=== PATIENT | female | born 1955 | race Caucasian/White ===

== ENCOUNTER → 2018-07-05 | Outpatient (CLI) | payer OTHER ==
[~2018-07-05] MED LIST: AREDS PO; BENAZEPRIL HCL10 MG PO; DICYCLOMINE HCL20 MG PO; GLIMEPIRIDE2 MG PO; LIPITOR20 MG PO; NEXIUM40 MG PO; SPECTRAVITE SE1 EACH PO; ULTRAM50 MG PO
--- NOTE | 2018-07-05 10:51 | Diagnostic Imaging Report ---
Exam: Left shoulderCT without contrast. History: Shoulder pain. Fracture. Decreased range of motion. Comparison:None Technique: Utilizing a 64-slice multidetector CT, axial imaging was performed through the left shoulder without IV contrast. Multiplanar reformation was performed. All CT scans are performed using radiation dose reduction techniques. Technical factors are evaluated and adjusted to ensure appropriate moderation of exposure. Automated dose management technology is applied to adjust the radiation dose to minimize exposure while achieving a diagnostic-quality image. Findings: There is a comminuted intra-articular impaction type fracture involving the left humeral head with several adjacent small bone fragments. The fracture extends to the inferior glenohumeral joint. The humeral head is well-seated in the glenoid fossa. There is associated soft tissue edema and there is a small shoulder joint effusion. There are mild degenerative changes at the acromioclavicular joint. The remainder the visualized osseous structures are intact. The visualized portion of the lung is grossly unremarkable. Impression: Comminuted intra-articular impaction type fracture involving the left humeral head with several adjacent small bone fragments. The fracture extends to the inferior glenohumeral joint. The humeral head is well-seated in the glenoid fossa. There is associated soft tissue edema and there is a small shoulder joint effusion. Signed by: Dr. Lyle Barajas M.D. on 07/05/2018 10:48 AM
== END ==
LOC: CT 08:50
PROVIDERS: ATTEND Specialist
DX: S42.202A Unspecified fracture of upper end of left humerus, initial encounter for closed fracture (principal)

== ENCOUNTER 2018-07-11 10:59 | Observation (INO) | payer OTHER ==
[2018-07-08 11:29] LABS: ANION GAP 13.4 mmol/L (8-16); BLOOD UREA NITROGEN 12 mg/dL (7-26); BUN/CREATININE RATIO 14 (6-25); CARBON DIOXIDE 27 mmol/L (22-29); CHLORIDE 103 mmol/L (98-107); CREATININE, SERUM 0.86 mg/dL (0.57-1.11); EST GLOMERULAR FILTRATION RATE > 60 ML/MIN (60-); GLUCOSE 162 mg/dL (74-118); POTASSIUM 4.4 mmol/L (3.5-5.1); SODIUM 139 mmol/L (136-145)
--- NOTE | 2018-07-08 13:15 | Diagnostic Imaging Report ---
EXAMINATION: CHEST 2 VIEWS INDICATION: \S\PRE ADMIT \[id number] \S\[id number] COMPARISON: Chest radiograph 08/21/2016 FINDINGS: PA and lateral views TUBES and LINES: None. LUNGS: Lungs are well inflated. Lungs are clear. There is no evidence of pneumonia or pulmonary edema. PLEURA: No pleural effusion or pneumothorax. HEART AND MEDIASTINUM: The cardiomediastinal silhouette is unremarkable. BONES AND SOFT TISSUES: No acute osseous lesion. Soft tissues are unremarkable. UPPER ABDOMEN: No free air under the diaphragm. IMPRESSION: No acute thoracic abnormality. Signed by: Dr. Stephie Ho M.D. on 07/08/2018 1:12 PM
[~2018-07-11] VITALS: Ht 160 cm; Wt 89.8 kg
[2018-07-11] MEDS ORDERED: CLINDAMYCIN PHOS 900MG/ D5W 50 50 ML IV ONE (11:10)
[2018-07-11] MEDS ORDERED: ULTRAM 50MG50 MG PO (11:26)
[2018-07-11] MEDS ORDERED: LEVAQUIN500 MG PO (11:27)
[2018-07-11] MEDS ORDERED: BUPIVACAINE 0.5%/EPI 30 ML SDV INJ ONE (12:01)
[2018-07-11] MEDS ORDERED: BACITRACIN 50,000 UNIT VIAL ONE (12:01)
[2018-07-11] MEDS ORDERED: BUPIVACAINE HCL 0.5% INJ 30 ML VIAL INJ ONE (12:01)
[2018-07-11] MEDS ORDERED: SODIUM CHLORIDE 0.9% 1000ML 1,000 ML IV SCH (14:32)
[2018-07-11] MEDS ORDERED: HYDROMORPHONE 0.2MG/ML-SOD CHL 30ML PCA SYRINGE IV PRN (14:45)
[2018-07-11] MEDS ORDERED: ONDANSETRON HCL INJ 2 MG/ML VIAL IV PRN (14:45)
[2018-07-11] MEDS ORDERED: ACETAMINOPHEN 1000 MG/100 ML IV PRN (14:45)
[2018-07-11] MEDS ORDERED: NALOXONE HCL INJ 0.4 MG/ML AMP IV PRN (14:45)
[2018-07-11] MEDS ORDERED: DIPHENHYDRAMINE HCL INJ 50 MG/ML VIAL IM/IV PRN (14:45)
[2018-07-11] MEDS ORDERED: HYDROMORPHONE 0.2MG/ML-SOD CHL 30ML PCA SYRINGE IV ONE (15:31)
[2018-07-11 18:20] VITALS: BP 135/69
[2018-07-11] MEDS ORDERED: LIDOCAINE 2%/ EPINEPHRINE 20ML MDV ONE (19:25)
[2018-07-11] MEDS ORDERED: ROPIVACAINE 0.5% 5 MG/ML 30 ML SDV ONE (19:25)
[2018-07-11] MEDS ORDERED: MIDAZOLAM HCL 2 MG/2 ML VIAL ONE (19:52)
[2018-07-11] MEDS ORDERED: FENTANYL CITRATE/PF 100MCG/2 ML INJ ONE (19:52)
[2018-07-11 20:00] VITALS: BP 174/81
[2018-07-11] MEDS ORDERED: ONDANSETRON HCL INJ 2 MG/ML VIAL ONE (20:00)
[2018-07-11] MEDS ORDERED: NEOSTIGMINE 5 MG/5ML SYR ONE (20:00)
[2018-07-11] MEDS ORDERED: ESMOLOL HCL 100MG/10ML 10 MG/ML VIAL ONE (20:00)
[2018-07-11] MEDS ORDERED: DEXAMETHASONE SOD PHOS INJ 4 MG/ML VIAL ONE (20:00)
[2018-07-11] MEDS ORDERED: LIDOCAINE HCL 2% LOCAL INJ 5 ML SDV VIAL INJ ONE (20:00)
[2018-07-11] MEDS ORDERED: PHENYLEPHRINE HCL 1% 10 MG/ML VIAL ONE (20:00)
[2018-07-11] MEDS ORDERED: SEVOFLURANE INHAL SOLN 250 ML PEN BTL ONE (20:00)
[2018-07-11] MEDS ORDERED: GLYCOPYRROLATE INJ 1MG/ 5 ML SYR ONE (20:00)
[2018-07-11] MEDS ORDERED: PROPOFOL IV EMULSION 10 MG/ML 20 ML VIAL ONE (20:00)
[2018-07-11] MEDS ORDERED: ROCURONIUM BROMIDE 10 MG/ML 5ML VIAL ONE (20:00)
[2018-07-11] MEDS: CLINDAMYCIN PHOS 900MG/ D5W 50 50 ML IV SCH (20:35)
[2018-07-11] MEDS ORDERED: CEFAZOLIN SOD 1 GM/D5W 50ML 50 ML IV SCH (22:00)
[2018-07-12] VITALS: BP 135/74
[2018-07-12 04:00] VITALS: BP 127/58
[2018-07-12] MEDS: CLINDAMYCIN PHOS 900MG/ D5W 50 50 ML IV SCH ×2 (04:16→13:12)
[2018-07-12 05:13] LABS: HEMATOCRIT 42.5 % (34.2-44.1); HEMOGLOBIN 14.1 g/dL (12.0-16.0)
--- NOTE | 2018-07-12 07:47 | Operative Report ---
DATE OF PROCEDURE: July 11, 2018 PREOPERATIVE DIAGNOSIS: Displaced right 3-part proximal humerus fracture. POSTOPERATIVE DIAGNOSIS: Displaced right 3-part proximal humerus fracture. OPERATION/PROCEDURE PERFORMED: The patient underwent an open reduction internal fixation of a 3-part proximal humerus fracture. SENIOR INFORMATION SECURITY CONSULTANT: None. ANESTHESIA: General endotracheal intubation anesthesia. IV FLUIDS: Per the anesthesia record. BRIEF DESCRIPTION OF THE PATIENT'S OPERATIVE PROCEDURE: Ms. Gar was taken to the operating room and placed in the supine position on the operating table. Following induction of general anesthesia, as well as endotracheal intubation, the patient's right upper extremity was examined under anesthesia. She was found to have bruising and ecchymosis in the upper arm. Fluoroscopic evaluation of the shoulder joint demonstrated a displaced greater tuberosity fragment as part of a 3-part proximal humerus fracture. The patient's upper extremity was prepped and draped in a standard surgical fashion. Standard deltopectoral approach was undertaken. An incision was begun roughly at the level of the clavicle and extended out obliquely and distally roughly in the deltopectoral interval. This incision was carried through skin only. Blunt dissection was used to deepen the incision. The cephalic vein was identified and mobilized medially. The pectoralis muscle was then released from its insertion into the humerus. The dissection was then carried proximally. The patient's displaced tuberosity fracture was identified. The tuberosity fracture fragment was freed and mobilized anteriorly. A plate was then chosen and placed directly over the tuberosity fracture fragment. This plate was then affixed to the humerus with combinations of both cortical and locking screws. The position of the plate, as well as the reduction of the patient's fracture site was then assessed fluoroscopically and found to be appropriate. The wound was copiously irrigated and then closed in a multilayer fashion. Sterile dressings were applied. The patient was then awakened and taken to the postanesthesia care in stable condition. Job#: [id number]
[2018-07-12 07:57] VITALS: BP 127/58
[2018-07-12] MEDS ORDERED: GLIMEPIRIDE 2 MG TAB PO SCH (08:00)
[2018-07-12 08:19] VITALS: BP 134/62
[2018-07-12] MEDS ORDERED: BENAZEPRIL HCL 10 MG TAB PO SCH (09:00)
[2018-07-12] MEDS ORDERED: MULTIVITAMIN PO SCH (09:00)
[2018-07-12] MEDS ORDERED: MULTIVITAMINS/MINERALS TAB PO SCH (09:00)
[2018-07-12] MEDS ORDERED: ATORVASTATIN 20 MG TAB PO SCH (09:00)
[2018-07-12] MEDS ORDERED: LEVOFLOXACIN 500 MG TAB PO SCH (09:00)
[2018-07-12] MEDS ORDERED: IRON MINERALS PO SCH (09:00)
[2018-07-12 12:18] VITALS: BP 157/72
[2018-07-12 15:00] VITALS: BP 127/61
== END 2018-07-12 15:57 | disposition home or self-care (01) ==
LOC: OR 10:59 → PACU V 14:34 → IMCU 16:47
PROVIDERS: ADMIT Specialist; ATTEND Specialist
DX: S42.232D 3-part fracture of surgical neck of left humerus, subsequent encounter for fracture with routine healing (principal); K21.9 Gastro-esophageal reflux disease without esophagitis; E11.9 Type 2 diabetes mellitus without complications; I10 Essential (primary) hypertension; E78.00 Pure hypercholesterolemia, unspecified; Z88.5 Allergy status to narcotic agent; Z88.0 Allergy status to penicillin; G47.33 Obstructive sleep apnea (adult) (pediatric)
CPT/HCPCS: 23680; 36415 ×3; 71046; 76001; 80048; 82948; 85014; 85018; 93005; C1713 ×6; G0378 ×2; J1100; J2001 ×2; J2250; J2370; J2405; J2795; J3490; J7030